=== PATIENT | female | born 1965 | race Caucasian/White ===

== ENCOUNTER → 2016-11-06 | Outpatient (CLI) | payer BC ==
[2014-04-04 22:53] VITALS: BP 156/104
[~2016-11-06] MED LIST: NORCO 325 MG-51 TAB PO
== END ==
LOC: LAB 12:28
DX: I10 Essential (primary) hypertension (principal); Z13.1 Encounter for screening for diabetes mellitus; Z13.6 Encounter for screening for cardiovascular disorders

== ENCOUNTER → 2016-11-15 | Outpatient (CLI) | payer BC ==
[2014-04-04 22:53] VITALS: BP 156/104
== END ==
LOC: LAB 15:59
DX: Z01.419 Encounter for gynecological examination (general) (routine) without abnormal findings (principal); I10 Essential (primary) hypertension; E78.5 Hyperlipidemia, unspecified; R73.9 Hyperglycemia, unspecified; Z78.9 Other specified health status; G47.33 Obstructive sleep apnea (adult) (pediatric); H57.8 Other specified disorders of eye and adnexa; M25.532 Pain in left wrist; R10.32 Left lower quadrant pain; R32 Unspecified urinary incontinence

== ENCOUNTER → 2016-12-06 | Outpatient (CLI) | payer BC ==
[2014-04-04 22:53] VITALS: BP 156/104
== END ==
LOC: MAMMO 13:52
DX: Z12.31 Encounter for screening mammogram for malignant neoplasm of breast (principal); R92.2 Inconclusive mammogram
CPT/HCPCS: G0202

== ENCOUNTER → 2016-12-14 | Outpatient (CLI) | payer BC ==
[2014-04-04 22:53] VITALS: BP 156/104
== END ==
LOC: MAMMO 13:16
DX: R92.2 Inconclusive mammogram (principal)

== ENCOUNTER → 2021-03-03 | Outpatient (CLI) | payer OTHER | END | disposition still patient (30) | LOC: RAD 11:32 | DX: M79.602 Pain in left arm (principal) ==

== ENCOUNTER → 2023-06-19 | Outpatient (CLI) | payer BC | LOC: RAD 09:05 | DX: M22.41 Chondromalacia patellae, right knee (principal); S83.241A Other tear of medial meniscus, current injury, right knee, initial encounter ==

== ENCOUNTER 2023-11-05 10:02 | Outpatient (RCR) | payer BC | END 2023-11-26 | disposition home or self-care (01) | LOC: PT | DX: M25.561 Pain in right knee (principal); Z96.651 Presence of right artificial knee joint ==

== ENCOUNTER 2023-11-28 08:00 | Outpatient (RCR) | payer BC | END 2023-12-27 | disposition home or self-care (01) | LOC: PT | DX: M25.561 Pain in right knee (principal); Z96.651 Presence of right artificial knee joint ==